=== PATIENT | female | born 1960 | race Caucasian/White ===

== ENCOUNTER 2017-11-08 14:44 | Emergency (ER) | payer OTHER ==
[~2017-11-08] VITALS: Ht 152.4 cm; Wt 61.2 kg
[2017-11-08] MEDS ORDERED: SYMBICORT 80/10.2 GM IH (19:51)
== END 2017-11-08 20:12 | disposition home or self-care (01) ==
LOC: ER 14:44
DX: R06.02 Shortness of breath (principal)

== ENCOUNTER 2017-12-29 07:10 | Emergency (ER) | payer OTHER ==
[~2017-12-29] VITALS: Ht 157.5 cm; Wt 72.6 kg
[~2017-12-29 07:10] MED LIST: SYMBICORT 80/10.2 GM IH
[2017-12-29] MEDS ORDERED: WOMEN'S DAILY1 EACH (07:30)
[2017-12-29] MEDS ORDERED: FOSAMAX70 MG (07:30)
== END 2017-12-29 09:06 | disposition home or self-care (01) ==
LOC: ER 07:10
DX: M62.838 Other muscle spasm (principal)

== ENCOUNTER 2018-11-20 13:02 | Emergency (ER) | payer OTHER ==
[~2018-11-20] VITALS: Ht 152.4 cm; Wt 52.6 kg
[~2018-11-20 13:02] MED LIST changes: +FOSAMAX70 MG; +WOMEN'S DAILY1 EACH
[2018-11-20] MEDS ORDERED: DOXYCYCLINE HY100 M2 (14:24)
[2018-11-20] MEDS ORDERED: PREDNISONE PO (14:24)
[2018-11-20] MEDS ORDERED: PROMETHAZI6.25 MG/5 (14:25)
== END 2018-11-20 17:39 | disposition home or self-care (01) ==
LOC: ER 13:02
DX: J45.998 Other asthma (principal); B96.0 Mycoplasma pneumoniae [M. pneumoniae] as the cause of diseases classified elsewhere

== ENCOUNTER 2019-02-15 15:41 | Emergency (ER) | payer OTHER ==
[~2019-02-15] VITALS: Ht 152.4 cm; Wt 53.1 kg
[~2019-02-15 15:41] MED LIST changes: +DOXYCYCLINE HY100 M2; +PREDNISONE PO; +PROMETHAZI6.25 MG/5
[2019-02-15] MEDS ORDERED: MULTI VITAMIN1 EACH (16:27)
== END 2019-02-15 21:27 | disposition home or self-care (01) ==
LOC: ER 15:41
DX: K62.5 Hemorrhage of anus and rectum (principal)